=== PATIENT | female | born 1945 | race Caucasian/White ===

== ENCOUNTER 2023-05-23 13:55 | Observation (INO) | payer MEDICARE, OTHER, SELFPAY ==
[2023-05-23] VITALS (22 sets, daily range): BP systolic 113–203; BP diastolic 54–109; PULSE 70–102; RESP 16–20; TEMP 36.6–37.3; O2SAT 93–99; BMI 28.5
[2023-05-23] MEDS: LABETALOL 20MG/4ML SYRINGE 20 MG IV ×2 (11:27→11:42)
[2023-05-23 11:28] LABS: Basophils # 0.1 K/mm3 (0-0.2); Basophils % 0.9 % (0.1-2.0); Eosinophils # 0.2 K/mm3 (0.0-0.4); Eosinophils % 2.4 % (0.1-12.0); Hematocrit 44.8 % (37.0-47.0); Lymphocytes # 1.8 K/mm3 (0.7-4.5); Mean Corpuscular HGB Conc 33.5 g/dL (31.8-35.4); Mean Corpuscular Hemoglobin 32.2 pg (27.0-31.2); Mean Corpuscular Volume 95.9 fl (81-99); Mean Platelet Volume 8.7 fl (7.4-10.4); Monocytes # 0.2 K/mm3 (0.1-1.0); Monocytes % 3.6 % (1.7-9.3); Neutrophils # 4.5 K/mm3 (1.8-7.8); Neutrophils % 67.1 % (37.0-80.0); Platelet Count 255 K/mm3 (142-424); Red Blood Count 4.68 M/mm3 (4.20-5.40); Red Cell Distribution Width 13.4 % (11.5-17.5); White Blood Count 6.7 K/mm3 (4.8-10.8)
[2023-05-23] MEDS: LORazepam 2MG/ML VIAL 1 MG IV ×2 (12:04→16:26)
--- NOTE | 2023-05-23 12:19 | IR_ITS ---
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 COMPLICATIONS None Estimated Blood Loss: Less than 10 mls TECHNIQUE One percent lidocaine was used to anesthetize the right groin. The right femoral artery was accessed via the Seldinger technique. A 5-Niuean sheath was placed in the right femoral artery. The JL-4 and JR-4 catheter was also used to perform left heart catheterization left ventriculogram and selective coronary angiogram. The JR4 catheter was used to cannulate the left subclavian artery and perform diagnostic angiography as well as perform bilateral selective renal angiography. At the end of the diagnostic angiogram therapeutic heparin was administered giving a therapeutic ACT and the 5 [place] sheath was exchanged for a long 7 [place] Terumo sheath. The Terumo sheath was used to cannulate the left subclavian artery. An advantage wire was used to push through the occlusion and placed into the left axillary artery. Following this a 7 mm x 20 mm balloon was used to predilate the stenosis in the left subclavian artery. A 7 mm x 17 mm EV 3 balloon mounted stent was deployed at 12 boo reducing the 100% occlusion. There was an ostial stenosis in the left subclavian artery therefore an additional 7 mm x 15 mm Herculink stent was deployed in the ostium and proximal portion which overlapped a 17 mm stent and then deployed at 14 boo. Excellent angiographic results were obtained. At the end of the procedure the apparatus was removed retrograde angiography demonstrated a arthur-sheath bleeding/hematoma. There was an attempt at Perclose device however the the device was never deployed and instead Angio-Seal device was attempted to achieve hemostasis. The footplate in the device did not deploy therefore the apparatus was removed and manual pressure was used to achieve hemostasis. There was a small hematoma present on the right groin however hemostasis was easily obtained. Patient was transferred to the postop holding in stable condition ANGIOGRAPHIC RESULTS The left main artery Normal The left anterior descending artery Normal The circumflex artery Nondominant gives rise to a ramus intermedius which is normal as well as the circumflex artery. The right coronary artery Is dominant has an ostial 40 to 50% stenosis with remaining vessel normal The MICHAELS ventriculogram reveals Normal 65% The left ventricular end-diastolic pressure 10 mmHg Left subclavian artery was initially bluntly occluded. Following revascularization there is antegrade flow through the left subclavian artery and into the left vertebral artery as well as a left axillary artery Right renal artery is singular and has proximal to mid vessel 20% stenosis Left renal artery singular normal IMPRESSION Moderate ostial dominant right coronary disease as described above Normal ejection fraction Normal left ventricular end-diastolic pressure Occluded left subclavian artery with patient experiencing subclavian steal Successful bare-metal stent deployment to the left subclavian artery reducing the 100% occlusion to 0% with 2 overlapping bare-metal stents as described above Mild nonflow limiting right renal artery stenosis Normal left renal artery PLAN 1. Plavix 75 mg daily plus aspirin 81 mg daily 2. Low-dose beta-linda. Will start bisoprolol 5 mg daily 3. Start patient on ODALYS inhibitor 4. Admission overnight for monitoring of the right groin and management of blood pressure. Patient had blood pressure of over 200 mmHg at the beginning of the case and during the case. 5. LDL less than 55 to be achieved with current simvastatin/Zetia. Patient previously had myalgias with high intensity statin 6. Chemistry panel CBC in the morning Electronically signed by : Luca Yao MD 05/23/2023 14:21:06
[2023-05-23] MEDS: LIDOCAINE 1% 10ML MDV 20 ML IJ (12:23)
[2023-05-23] MEDS: diphenhydrAMINE 50MG/ML VIAL 50 MG IV (12:23)
[2023-05-23] MEDS: MIDAZOLAM HCL 1MG/1ML 5ML VIAL 1 MG IV ×2 (12:23→13:00)
[2023-05-23] MEDS: FENTANYL 100MCG/2ML VIAL 50 MCG IV ×2 (12:24→13:00)
[2023-05-23] MEDS: PROTAMINE SULFATE 50MG/5ML VIAL (CATH LAB) 50 MG IV (13:10)
[2023-05-23] MEDS: CLOPIDOGREL 300MG TABLET 300 MG PO (13:12)
--- NOTE | 2023-05-23 14:02 | HMH.PHAINT1 ---
Pharmacy Intervention Comments: HOME MEDICATION LIST VERIFIED USING LIST FROM OUTPATIENT PHARMACY
--- NOTE | 2023-05-23 15:00 | CA_ITS ---
FINAL REPORT TECHNIQUE: Ultrasound imaging of right inguinal region CLINICAL HISTORY: SWELLING RIGHT GROIN POST CATH COMPARISON: None FINDINGS: ULTRASOUND RIGHT INGUINAL REGION: Ultrasound examination was performed to evaluate soft tissue swelling in the region postcardiac catheterization. The common femoral vein reveals normal flow. No extravasation is seen on this examination. No pseudoaneurysm or AV fistula is present. IMPRESSION: No evidence of extravasation, pseudoaneurysm, or AV fistula is seen. Reviewed, Interpreted and Dictated by Monroe Daniels III, MD Transcribed by Selina Draper Authenticated and [facility]
--- NOTE | 2023-05-23 15:06 | P.CONCA_ITS ---
History of Present Illness History of Present Illness Consult date: 05/23/23 Requesting physician: Timbo Hardin Consult reason: post-op evaluation Chief complaint: Observation post procedure History of present illness: This is a 78-year-old white female who underwent left heart catheterization, left subclavian angiogram and bilateral renal angiogram today for further evaluation of polyvascular disease. Patient received 2 overlapping bare-metal stents to the left subclavian and is being admitted for observation and blood pressure management. See cath report below: IMPRESSION Moderate ostial dominant right coronary disease as described above Normal ejection fraction Normal left ventricular end-diastolic pressure Occluded left subclavian artery with patient experiencing subclavian steal Successful bare-metal stent deployment to the left subclavian artery reducing the 100% occlusion to 0% with 2 overlapping bare-metal stents as described above Mild nonflow limiting right renal artery stenosis Normal left renal artery PLAN 1. Plavix 75 mg daily plus aspirin 81 mg daily 2. Low-dose beta-linda. Will start bisoprolol 5 mg daily 3. Start patient on ODALYS inhibitor 4. Admission overnight for monitoring of the right groin and management of blood pressure. Patient had blood pressure of over 200 mmHg at the beginning of the case and during the case. 5. LDL less than 55 to be achieved with current simvastatin/Zetia. Patient previously had myalgias with high intensity statin 6. Chemistry panel CBC in the morning [facility] Disclaimer: The information contained in this section may have been updated after the patient was seen, as this information can be updated by other users. Medical History Claudication of left upper extremity due to atherosclerosis High cholesterol Hyperlipidemia Malignant essential hypertension Osteoporosis Subclavian artery stenosis, left Family History No significant family history Social History Smoking Status: Never smoker alcohol intake: never substance use type: denies use current occupational status: retired Travel in the last 8 weeks: Inside the [place] Review of Systems Review of Systems Review of systems:: pertinent systems reviewed and negative unless documented below ENT Ears, Nose, Mouth, and Throat: Reports vertigo *Neurologic Neurologic: Reports vertigo Exam Data for Last 24 hours Vital signs and Labs for Last 24 Hours: Temp Pulse Resp BP Pulse Ox O2 Del Method 98 F 72 17 114/69 95 Room Air 05/23/23 13:30 05/23/23 14:00 05/23/23 14:00 05/23/23 14:00 05/23/23 14:00 05/23/23 13:30 Laboratory Results - last 24 hr 05/23/23 11:15: WBC 6.7, RBC 4.68, Hgb 15.0, Hct 44.8, MCV 95.9, MCH 32.2 H, MCHC 33.5, RDW 13.4, Plt Count 255, MPV 8.7, Neut % (Auto) 67.1, Lymph % (Auto) 26.0, [place] % (Auto) 3.6, Eos % (Auto) 2.4, Baso % (Auto) 0.9, Neut # (Auto) 4.5, Lymph # (Auto) 1.8, [place] # (Auto) 0.2, Eos # (Auto) 0.2, Baso # (Auto) 0.1 I & O for Last 24 hours: Intake & Output 05/20/23 05/21/23 05/22/23 05/23/23 23:59 23:59 23:59 23:59 Weight 160 lb 14.999 oz Meds Home Medications and Allergies Home Medications Medication Instructions Recorded Confirmed Type calcium phosphate,dibasic 77 2 tab PO DAILY 05/23/23 05/23/23 History mg-vitamin D3 400 unit tablet clopidogrel 75 mg tablet (Plavix) 75 mg PO DAILY #30 tabs 05/23/23 Rx ezetimibe 10 mg-simvastatin 10 mg 1 tab PO DAILY 05/23/23 05/23/23 History tablet aspirin 81 mg tablet,delayed 81 mg PO DAILY 30 days #30 tabs 05/24/23 Rx release bisoprolol fumarate 5 mg tablet 5 mg PO DAILY 30 days #30 tabs 05/24/23 Rx clopidogrel 75 mg tablet 75 mg PO DAILY 30 days #30 tabs 05/24/23 Rx lisinopril 10 mg tablet 10 mg PO DAILY 30 days #30 tabs 05/24/23 Rx pravastatin 40 mg tablet 40 mg PO HS 30 days #30 tabs 05/24/23 Rx New Prescriptions to Start Prescriptions: aspirin Eric Rendon bisoprolol fumarate Eric Rendon clopidogrel [Plavix] Luca Yao clopidogrel Justice,Irfan lisinopril Justice,Irfan pravastatin Justice,Irfan Allergies Allergy/AdvReac Type Severity Reaction Status Date / Time No Known Allergies Allergy Verified 05/23/23 10:14 Assessment and Plan *Assessment and plan (1) PAD (peripheral artery disease): Status: Acute Category: Medical Code(s): I73.9 - Peripheral vascular disease, unspecified (2) Carotid artery disease: Status: Acute Qualifiers: Carotid artery disease type: stenosis Laterality: bilateral Qualified Code(s): I65.23 - Occlusion and stenosis of bilateral carotid arteries Category: Medical Code(s): I77.9 - Disorder of arteries and arterioles, unspecified (3) Malignant essential hypertension: Status: Acute Category: Medical Code(s): I10 - Essential (primary) hypertension (4) Subclavian artery stenosis, left: Status: Acute Category: Medical Code(s): I77.1 - Stricture of artery (5) Hyperlipidemia: Status: Acute Qualifiers: Hyperlipidemia type: mixed hyperlipidemia Qualified Code(s): E78.2 - Mixed hyperlipidemia Category: Medical Code(s): E78.5 - Hyperlipidemia, unspecified (6) Coronary artery disease: Status: Acute Category: Medical Code(s): I25.10 - Atherosclerotic heart disease of [place] coronary artery without angina pectoris Plan History of polyvascular disease Peripheral artery disease Carotid artery disease Subclavian stenosis -Left heart cath 05/23/2023: Right coronary artery is dominant and has an ostial 40 to 50% stenosis with remaining vessel normal. Patient received 2 overlapping bare-metal stents to the left subclavian artery. Mild nonflow limiting right renal artery stenosis was noted with a normal left renal artery. -Start Plavix 75 mg daily and aspirin 81 mg daily -Start bisoprolol 5 mg p.o. daily -Start lisinopril 10 mg p.o. daily -LDL goal less than 55. Patient has had myalgia in the past with high intensity statins recommend simvastatin and Zetia -A.m. labs CV summary 05/23/2023: Status post procedures see above note. Continue to monitor groin site and blood pressure throughout the evening. A.m. labs.
--- NOTE | 2023-05-23 15:14 | PC.NURSE ---
REPORT RECEIVED FROM JAYDEN GARCIA
[2023-05-23 15:42] LABS: CATHL Activated Clotting Time 352 SEC (74-125)
[2023-05-23] MEDS: IOPAMIDOL-370 (76%);100ML BOTTLE 180 ML IV (15:43)
--- NOTE | 2023-05-23 16:31 | PC.NURSE ---
arrived by ravener from [facility]
--- NOTE | 2023-05-23 18:11 | P.HP_ITS ---
History of Present Illness *Admission Date: 05/23/23 *Reason for visit:: Subclavian stenosis *History of present illness: Curtis is a 78-year-old female with left subclavian stenosis. Was brought in electively for stenting of stenosis with cardiology. History of claudication of left upper extremity. Concern for hypertension secondary to compensatory response to the stenosis. Also has a history of hyperlipidemia. Taken to the Blood Bank Laboratory Technologist with successful stenting and opening of subclavian. After procedure, had some difficulty closing right femoral artery insertion site. Pressure held with hemostasis achieved. Cardiology requested admission overnight for observation. Medicine agreed to admit. Patient stable on room air. Discussed case with cardiology, will monitor overnight, needs to lay flat till 9 PM. Blood pressure normal at this time. [facility] Disclaimer: The information contained in this section may have been updated after the patient was seen, as this information can be updated by other users. Medical History Claudication of left upper extremity due to atherosclerosis High cholesterol Hyperlipidemia Malignant essential hypertension Osteoporosis Subclavian artery stenosis, left Family History No significant family history Social History Smoking Status: Never smoker alcohol intake: never substance use type: denies use current occupational status: retired Travel in the last 8 weeks: Inside the [place] Review of Systems Review of Systems Review of systems (narrative): 14 point review of systems performed, pertinent positives and negatives as per HPI ENT Ears, Nose, Mouth, and Throat: Reports vertigo *Neurologic Neurologic: Reports vertigo Meds Home Medications and Allergies Home Medications Medication Instructions Recorded Confirmed Type aspirin 81 mg tablet 81 mg PO DAILY 05/23/23 05/23/23 History calcium phosphate,dibasic 77 2 tab PO DAILY 05/23/23 05/23/23 History mg-vitamin D3 400 unit tablet clopidogrel 75 mg tablet (Plavix) 75 mg PO DAILY #30 tabs 05/23/23 Rx ezetimibe 10 mg-simvastatin 10 mg 1 tab PO DAILY 05/23/23 05/23/23 History tablet New Prescriptions to Start Prescriptions: clopidogrel [Plavix] Luca Yao Allergies Allergy/AdvReac Type Severity Reaction Status Date / Time No Known Allergies Allergy Verified 05/23/23 10:14 Exam Data for Last 24 hours Vital signs and Labs for Last 24 Hours: Temp Pulse Resp BP Pulse Ox O2 Del Method 97.9 F 81 16 119/63 93 L Room Air 05/23/23 16:45 05/23/23 17:45 05/23/23 17:45 05/23/23 17:45 05/23/23 17:45 05/23/23 17:45 Laboratory Results - last 24 hr 05/23/23 11:15: WBC 6.7, RBC 4.68, Hgb 15.0, Hct 44.8, MCV 95.9, MCH 32.2 H, MCHC 33.5, RDW 13.4, Plt Count 255, MPV 8.7, Neut % (Auto) 67.1, Lymph % (Auto) 26.0, Lane % (Auto) 3.6, Eos % (Auto) 2.4, Baso % (Auto) 0.9, Neut # (Auto) 4.5, Lymph # (Auto) 1.8, Lane # (Auto) 0.2, Eos # (Auto) 0.2, Baso # (Auto) 0.1 05/23/23 13:33: Activated Clotting Time 352 H* I & O for Last 24 hours: Intake & Output 05/20/23 05/21/23 05/22/23 05/23/23 23:59 23:59 23:59 23:59 Weight 73 kg Constitutional Constitutional: no acute distress and average body habitus *Routine HEENT Exam Head: Present normocephalic Eye: Present EOMI and PERRL ENT: Present mucous membranes moist *Routine Neck Exam Neck: Present supple; Absent lymphadenopathy *Routine Respiratory Exam Respiratory: Present CTA bilaterally *Routine Cardiovascular Exam Cardiovascular: Present RRR *Routine Abdominal Exam Abdominal: Present soft and normoactive bowel sounds; Absent tenderness *Routine Rectal Exam Rectal:: deferred *Routine Genitalia Exam Genitalia:: normal female Comment:: Bruising in right groin at insertion site, no significant palpable hematoma. Tender to palpation *Routine Extremities Exam Extremities: Present pulses intact; Absent cyanosis, clubbing or edema *Routine Skin Exam Skin: Present warm; Absent rash *Routine Neurological Exam Neurological: Present alert, oriented X3 and moving all extremities; Absent altered mental status Assessment and Plan *Assessment and plan (1) Claudication of left upper extremity due to atherosclerosis: Status: Acute Category: Medical Code(s): I70.218 - Atherosclerosis of [place] arteries of extremities with intermittent claudication, other extremity (2) Subclavian artery stenosis, left: Status: Acute Category: Medical Code(s): I77.1 - Stricture of artery (3) Coronary artery disease: Status: Acute Category: Medical Code(s): I25.10 - Atherosclerotic heart disease of [place] coronary artery without angina pectoris (4) PAD (peripheral artery disease): Status: Acute Category: Medical Code(s): I73.9 - Peripheral vascular disease, unspecified (5) Hyperlipidemia: Status: Acute Qualifiers: Hyperlipidemia type: mixed hyperlipidemia Qualified Code(s): E78.2 - Mixed hyperlipidemia Category: Medical Code(s): E78.5 - Hyperlipidemia, unspecified Plan 78-year-old female with claudication of left upper extremity. Significant subclavian artery stenosis. Taken to Blood Bank Laboratory Technologist with successful stenting and reperfusion of subclavian artery. Discussed case with cardiology, request admission overnight for observation. Patient needs to lay flat till 9 AM. Blood pressure better controlled. Monitoring of hematoma in right groin. Problems addressed as follows: Left subclavian artery stenosis status post stenting Malignant hypertension Hyperlipidemia -Status post stenting. Monitoring overnight. Must lay flat till 9 PM at least. -Monitor for stroke symptoms, confusion, weakness, bleeding at insertion site and right groin - Continue bisoprolol 5 mg daily, Plavix 75 mg daily, aspirin 81 mg daily, lisinopril 10 mg daily, pravastatin 40 mg nightly. -Lipid panel ordered for the morning. CBC, CMP, magnesium ordered for the morning. -Cardiology consulted and assisting with care. Full code Regular diet Heparinized in the Blood Bank Laboratory Technologist
--- NOTE | 2023-05-23 18:33 | INFXCTL.NOTE ---
A&OX4. PT HAS TOLERATED RA WELL THROUGHOUT SHIFT. RESPIRATIONS REGULAR AND UNLABORED. LUNG SOUNDS CLEAR THROUGHOUT. NO COUGH NOTED. +1 PULSES NOTED THROUGHOUT. NO EDEMA NOTED. ACTIVE BOWEL SOUNDS HEARD IN ALL 4 QUADRANTS. SOFT AND NONTENDER. NO PAIN REPORTED THUS FAR. FAMILY HAS REMAINED AT BEDSIDE. HAND TRADE MARKER EQUAL. PT RECEIVED SUBCLAVIAN ANGIOGRAM THIS SHIFT WITH 1 STENT [address]ACED. R GROIN SITE NOTED. BRUISING NOTED. MONITORED CLOSELY AND UNCHANGED SINCE ARRIVAL TO FLOOR. BED IN LOWEST POSITION. PT HAS REMAINED IN SUPINE POSITION. CALL LIGHT WITHIN REACH. VSS.
[2023-05-23] MEDS: PRAVASTATIN 40MG TAB 40 MG PO (22:14)
[2023-05-24] VITALS: BP 112/64; PULSE 68; RESP 70; TEMP 36.6; O2SAT 94
[2023-05-24 04:00] VITALS: BP 119/60; PULSE 68; PULSE 71; RESP 18; TEMP 36.6; O2SAT 97; BMI 28.9
[2023-05-24 06:29] LABS: Eosinophils # 0.1 K/mm3 (0.0-0.4); Lymphocytes # 1.9 K/mm3 (0.7-4.5); Monocytes # 0.4 K/mm3 (0.1-1.0); Neutrophils # 4.2 K/mm3 (1.8-7.8); White Blood Count 6.6 K/mm3 (4.8-10.8)
[2023-05-24 06:44] LABS: Alanine Aminotransferase 25 U/L (12-78); Albumin Level 3.6 g/dl (3.5-5.0); Albumin/Globulin Ratio 1.3 (1.1-1.8); Alkaline Phosphatase 99 U/L (38-126); Anion Gap 12.8 mEq/L (5-15); Aspartate Amino Transferase 29 U/L (14-36); Bilirubin,Total 0.4 mg/dl (0.2-1.3); Blood Urea Nitrogen 20 mg/dl (7-17); Calcium 8.2 mg/dl (8.4-10.2); Carbon Dioxide 24 mmol/L (22.0-30.0); Chloride 109 mmol/L (98-107); Chol/HDL Ratio 5.9 (1-3.5); Cholesterol 176 mg/dl (140-200); Creatinine Clearance Estimated 54 mL/min (50-200); Estimated Glomerular Filt Rate 54 ml/min (>60); GFR (African American) 65 ML/MIN (>60); Globulin 2.7 g/dL (1.3-3.2); Glucose 103 mg/dl (74-100); HDL Cholesterol 30 mg/dl (40-60); Magnesium 2.2 mg/dl (1.6-2.3); Potassium 3.8 mmoL/L (3.5-5.1); Sodium 142 mmol/L (136-145); Total Protein,Serum 6.3 g/dl (6.3-8.2); Triglycerides 152 mg/dl (30-150); VLDL Cholesterol 30 mg/dL (0-40)
[2023-05-24 06:50] LABS: Basophils % 0.6 % (0.1-2.0); Eosinophils % 1.8 % (0.1-12.0); Lymphocytes % 28.2 % (10-50); Mean Corpuscular HGB Conc 33.1 g/dL (31.8-35.4); Mean Corpuscular Hemoglobin 31.3 pg (27.0-31.2); Mean Corpuscular Volume 94.3 fl (81-99); Neutrophils % 63.4 % (37.0-80.0); Platelet Count 264 K/mm3 (142-424); Red Blood Count 3.82 M/mm3 (4.20-5.40); Red Cell Distribution Width 13.3 % (11.5-17.5)
[2023-05-24 06:54] LABS: Direct LDL Cholesterol 103.71 mg/dL (100-129)
--- NOTE | 2023-05-24 07:00 | US_ITS ---
FINAL REPORT TECHNIQUE: Ultrasound examination of right inguinal area CLINICAL HISTORY: blood loss COMPARISON: Duplex scan right inguinal area 05/23/2023 FINDINGS: ULTRASOUND SOFT TISSUES RIGHT INGUINAL REGION: Ultrasound examination of the right inguinal region was performed. The patient has a history of a recent cardiac catheterization and continued bleeding from the catheterization site. No mass or fluid collection is identified in the right inguinal soft tissues. IMPRESSION: No mass or fluid collection identified in the right inguinal soft tissues at a cardiac catheterization site. Reviewed, Interpreted and Dictated by Monroe Daniels III, MD Transcribed by Selina Draper Authenticated and . [facility]
[2023-05-24 07:29] LABS: Hemoglobin 11.9 g/dL (12.2-16.2)
[2023-05-24 08:00] VITALS: BP 146/61; PULSE 78; PULSE 80; RESP 18; TEMP 36.8; O2SAT 96
[2023-05-24] MEDS: BISOPROLOL 5MG TABLET 5 MG PO (08:27)
[2023-05-24] MEDS: ASPIRIN EC 81MG TABLET 81 MG PO (08:27)
[2023-05-24] MEDS: LISINOPRIL 10MG TABLET 10 MG PO (08:27)
[2023-05-24] MEDS: CLOPIDOGREL 75MG TAB 75 MG PO (08:27)
[2023-05-24] MEDS: EZETIMIBE 10MG TABLET 10 MG PO (08:28)
--- NOTE | 2023-05-24 09:35 | P.PN_ITS ---
Subjective Subjective Date: 05/24/23 Time: 08:00 Principal diagnosis: Status post procedure Interval history: Patient doing well this morning. Systolic blood pressure has remained less than 130. Morning labs reviewed and stable. Right groin site-dressing dry and intact. Bruising noted, no swelling present. Right leg is pink and warm with strong DP and PT pulses present. Exam Data for Last 24 hours Vital signs and Labs for Last 24 Hours: Temp Pulse Resp BP Pulse Ox O2 Del Method 98.3 F 78 18 146/61 H 96 Room Air 05/24/23 08:00 05/24/23 08:00 05/24/23 08:00 05/24/23 08:00 05/24/23 08:00 05/24/23 08:00 Laboratory Results - last 24 hr 05/23/23 11:15: WBC 6.7, RBC 4.68, Hgb 15.0, Hct 44.8, MCV 95.9, MCH 32.2 H, MCHC 33.5, RDW 13.4, Plt Count 255, MPV 8.7, Neut % (Auto) 67.1, Lymph % (Auto) 26.0, [place] % (Auto) 3.6, Eos % (Auto) 2.4, Baso % (Auto) 0.9, Neut # (Auto) 4.5, Lymph # (Auto) 1.8, [place] # (Auto) 0.2, Eos # (Auto) 0.2, Baso # (Auto) 0.1 05/23/23 13:33: Activated Clotting Time 352 H* 05/24/23 05:48: WBC 6.6, RBC 3.82 L, Hgb 11.9 L D, Hct 36.0 L, MCV 94.3, MCH 31.3 H, MCHC 33.1, RDW 13.3, Plt Count 264, MPV 8.0, Neut % (Auto) 63.4, Lymph % (Auto) 28.2, [place] % (Auto) 6.0, Eos % (Auto) 1.8, Baso % (Auto) 0.6, Neut # (Auto) 4.2, Lymph # (Auto) 1.9, [place] # (Auto) 0.4, Eos # (Auto) 0.1, Baso # (Auto) 0.0, Sodium 142, Potassium 3.8, Chloride 109 H, Carbon Dioxide 24, Anion Gap 12.8, BUN 20 H, Creatinine 1.00, Estimated Creat Clear 54, Estimated GFR 54 L, Est GFR ( Amer) 65, Glucose 103 H, Calcium 8.2 L, Magnesium 2.2, Total Bilirubin 0.4, AST 29, ALT 25, Alkaline Phosphatase 99, Total Protein 6.3, Albumin 3.6, Globulin 2.7, Albumin/Globulin Ratio 1.3, Triglycerides 152 H, Cholesterol 176, LDL Cholesterol Direct 103.71, VLDL Cholesterol 30, HDL Cholesterol 30 L, Cholesterol/HDL Ratio 5.9 H I & O for Last 24 hours: Intake & Output 05/21/23 05/22/23 05/23/23 05/24/23 23:59 23:59 23:59 23:59 Intake Total 260 / 260 Output Total 0 / 0 0 / 0 Balance 0 / 0 260 / 260 Weight 160 lb 14.999 oz 163 lb 4.8 oz Constitutional Constitutional: no acute distress *Routine Respiratory Exam Respiratory: Present CTA bilaterally and symmetric chest movement *Routine Cardiovascular Exam Cardiovascular: Present RRR, Normal S1 and Normal S2 *Routine Abdominal Exam Abdominal: Present soft and normoactive bowel sounds; Absent tenderness *Routine Extremities Exam Extremities: Present full ROM, pulses intact and normal capillary refill; Absent edema Comments: Right groin site-dressing dry and intact. Bruising present with no swelling noted. Right leg is pink and warm with strong DP and PT pulses present. *Routine Skin Exam Skin: Present intact, dry and warm Detailed Neck Exam: Thyroids Thyroid: Absent bruit Progress Note: A&P Assessment and plan (1) Claudication of left upper extremity due to atherosclerosis: Status: Acute (2) Subclavian artery stenosis, left: Status: Acute (3) Coronary artery disease: Status: Acute (4) PAD (peripheral artery disease): Status: Acute (5) Hyperlipidemia: Status: Acute Assessment and Plan Assessment and Plan for All Diagnoses:: History of polyvascular disease Peripheral artery disease Carotid artery disease Subclavian stenosis -Left heart cath 05/23/2023: Right coronary artery is dominant and has an ostial 40 to 50% stenosis with remaining vessel normal. Patient received 2 overlapping bare-metal stents to the left subclavian artery. Mild nonflow limiting right renal artery stenosis was noted with a normal left renal artery. -Continue Plavix 75 mg daily and aspirin 81 mg daily -Stop bisoprolol and Lisinopril per Dr. choe. -Patient advised to monitor blood pressure at home and keep a twice daily blood pressure log and bring with her to office follow-up -LDL goal less than 55. Patient has had myalgia in the past with high intensity statins recommend simvastatin and Zetia -A.m. labs reviewed and stable. -Right lower extremity ultrasound 05/24/2023: No mass or fluid collection identified in the right inguinal soft tissue in the cardiac catheterization site. CV summary 05/24/2023: Patient is CV stable for discharge home after Dr. Choe sees her this afternoon. Patient needs to follow-up in cardiology clinic in 1 week for reevaluation. Please continue Plavix 75 mg p.o. daily, aspirin 81 mg p.o. daily, Zetia 10 mg p.o. daily and simvastatin 40 mg p.o. daily. Please advise patient to keep a twice daily blood pressure log and bring it with her to office follow-up.
--- NOTE | 2023-05-24 09:44 | P.DS_ITS ---
General Admission date:: 05/23/23 Discharge date: 05/26/23 HPI HPI HPI: Curtis is a 78-year-old female with left subclavian stenosis. Was brought in electively for stenting of stenosis with cardiology. History of claudication of left upper extremity. Concern for hypertension secondary to compensatory response to the stenosis. Also has a history of hyperlipidemia. Taken to the Student Driving Instructor with successful stenting and opening of subclavian. After procedure, had some difficulty closing right femoral artery insertion site. Pressure held with hemostasis achieved. Cardiology requested admission overnight for observation. Medicine agreed to admit. Patient stable on room air. Discussed case with cardiology, will monitor overnight, needs to lay flat till 9 PM. Blood pressure normal at this time. Hospital Course Hospital Course Hospital Course: Patient was seen and evaluated at the bedside on the day of discharge. Patient is stable for discharge. Patient wishes to be discharged. All patient questions were answered and patient was given time to ask questions. Patient was discharged in stable condition. Patient understands that she can return to ER in case of any sudden changes in health. Total time spent on DC - 38 mins Patient to follow up with cardiology as OP, see Cardiology progress note. Patient is CV stable for discharge home per cardiology. Patient needs to follow- up in cardiology clinic in 1 week for reevaluation. Please continue Plavix 75 mg p.o. daily, aspirin 81 mg p.o. daily, Zetia 10 mg p.o. daily and simvastatin 40 mg p.o. daily. Please advise patient to keep a twice daily blood pressure log and bring it with her to office follow-up. Exam Data for Last 24 hours Vital signs and Labs for Last 24 Hours: Temp Pulse Resp BP Pulse Ox O2 Del Method 98.3 F 78 18 146/61 H 96 Room Air 05/24/23 08:00 05/24/23 08:00 05/24/23 08:00 05/24/23 08:00 05/24/23 08:00 05/24/23 08:00 Laboratory Results - last 24 hr 05/23/23 11:15: WBC 6.7, RBC 4.68, Hgb 15.0, Hct 44.8, MCV 95.9, MCH 32.2 H, MCHC 33.5, RDW 13.4, Plt Count 255, MPV 8.7, Neut % (Auto) 67.1, Lymph % (Auto) 26.0, [place] % (Auto) 3.6, Eos % (Auto) 2.4, Baso % (Auto) 0.9, Neut # (Auto) 4.5, Lymph # (Auto) 1.8, [place] # (Auto) 0.2, Eos # (Auto) 0.2, Baso # (Auto) 0.1 05/23/23 13:33: Activated Clotting Time 352 H* 05/24/23 05:48: WBC 6.6, RBC 3.82 L, Hgb 11.9 L D, Hct 36.0 L, MCV 94.3, MCH 31.3 H, MCHC 33.1, RDW 13.3, Plt Count 264, MPV 8.0, Neut % (Auto) 63.4, Lymph % (Auto) 28.2, [place] % (Auto) 6.0, Eos % (Auto) 1.8, Baso % (Auto) 0.6, Neut # (Au to) 4.2, Lymph # (Auto) 1.9, [place] # (Auto) 0.4, Eos # (Auto) 0.1, Baso # (Auto) 0.0, Sodium 142, Potassium 3.8, Chloride 109 H, Carbon Dioxide 24, Anion Gap 12.8, BUN 20 H, Creatinine 1.00, Estimated Creat Clear 54, Estimated GFR 54 L, Est GFR ( Amer) 65, Glucose 103 H, Calcium 8.2 L, Magnesium 2.2, Total Bilirubin 0.4, AST 29, ALT 25, Alkaline Phosphatase 99, Total Protein 6.3, Albumin 3.6, Globulin 2.7, Albumin/Globulin Ratio 1.3, Triglycerides 152 H, Cholesterol 176, LDL Cholesterol Direct 103.71, VLDL Cholesterol 30, HDL Cholesterol 30 L, Cholesterol/HDL Ratio 5.9 H I & O for Last 24 hours: Intake & Output 05/21/23 05/22/23 05/23/23 05/24/23 23:59 23:59 23:59 23:59 Intake Total 260 / 260 Output Total 0 / 0 0 / 0 Balance 0 / 0 260 / 260 Weight 73 kg 74.072 kg Constitutional Constitutional: no acute distress *Routine HEENT Exam Head: Present normocephalic Eye: Present EOMI and PERRL ENT: Present mucous membranes moist *Routine Neck Exam Neck: Present supple; Absent lymphadenopathy *Routine Respiratory Exam Respiratory: Present CTA bilaterally and symmetric chest movement *Routine Cardiovascular Exam Cardiovascular: Present RRR, Normal S1 and Normal S2 *Routine Abdominal Exam Abdominal: Present soft and normoactive bowel sounds; Absent tenderness *Routine Extremities Exam Extremities: Present full ROM, pulses intact and normal capillary refill; Absent edema Comments: Right groin site-dressing dry and intact. Bruising present with no swelling noted. Right leg is pink and warm with strong DP and PT pulses present. *Routine Skin Exam Skin: Present intact, dry and warm *Routine Neurological Exam Neurological: Present alert and oriented X3 Detailed Neck Exam: Thyroids Thyroid: Absent bruit Results Data Completed and Pending Labs on day of discharge: Labs from last 24 hours 05/24/23 05/23/23 05/23/23 05:48 13:33 11:15 WBC 6.6 6.7 RBC 3.82 L 4.68 Hgb 11.9 L D 15.0 Hct 36.0 L 44.8 MCV 94.3 95.9 MCH 31.3 H 32.2 H MCHC 33.1 33.5 RDW 13.3 13.4 Plt Count 264 255 MPV 8.0 8.7 Neut % (Auto) 63.4 67.1 Lymph % (Auto) 28.2 26.0 Charlotte % (Auto) 6.0 3.6 Eos % (Auto) 1.8 2.4 Baso % (Auto) 0.6 0.9 Neut # (Auto) 4.2 4.5 Lymph # (Auto) 1.9 1.8 Charlotte # (Auto) 0.4 0.2 Eos # (Auto) 0.1 0.2 Baso # (Auto) 0.0 0.1 Activated Clotting Time 352 H* Sodium 142 Potassium 3.8 Chloride 109 H Carbon Dioxide 24 Anion Gap 12.8 BUN 20 H Creatinine 1.00 Estimated Creat Clear 54 Estimated GFR 54 L Est GFR ( Amer) 65 Glucose 103 H Calcium 8.2 L Magnesium 2.2 Total Bilirubin 0.4 AST 29 ALT 25 Alkaline Phosphatase 99 Total Protein 6.3 Albumin 3.6 Globulin 2.7 Albumin/Globulin Ratio 1.3 Triglycerides 152 H Cholesterol 176 LDL Cholesterol Direct 103.71 VLDL Cholesterol 30 HDL Cholesterol 30 L Cholesterol/HDL Ratio 5.9 H DS: Diagnosis Discharge Diagnosis (1) PAD (peripheral artery disease): Status: Acute Code(s): I73.9 - Peripheral vascular disease, unspecified (2) Carotid artery disease: Status: Acute Code(s): I77.9 - Disorder of arteries and arterioles, unspecified Qualifiers: Carotid artery disease type: stenosis Laterality: bilateral Qualified Code(s): I65.23 - Occlusion and stenosis of bilateral carotid arteries (3) Malignant essential hypertension: Status: Acute Code(s): I10 - Essential (primary) hypertension (4) Subclavian artery stenosis, left: Status: Acute Code(s): I77.1 - Stricture of artery (5) Hyperlipidemia: Status: Acute Code(s): E78.5 - Hyperlipidemia, unspecified Qualifiers: Hyperlipidemia type: mixed hyperlipidemia Qualified Code(s): E78.2 - Mixed hyperlipidemia (6) Coronary artery disease: Status: Acute Code(s): I25.10 - Atherosclerotic heart disease of [place] coronary artery without angina pectoris Meds Home Medications and Allergies Home Medications Medication Instructions Recorded Confirmed Type calcium phosphate,dibasic 77 2 tab PO DAILY 05/23/23 05/23/23 History mg-vitamin D3 400 unit tablet clopidogrel 75 mg tablet (Plavix) 75 mg PO DAILY #30 tabs 05/23/23 Rx ezetimibe 10 mg-simvastatin 10 mg 1 tab PO DAILY 05/23/23 05/23/23 History tablet aspirin 81 mg tablet,delayed 81 mg PO DAILY 30 days #30 tabs 05/24/23 Rx release clopidogrel 75 mg tablet 75 mg PO DAILY 30 days #30 tabs 05/24/23 Rx New Prescriptions to Start Prescriptions: aspirin Iván Rendonan clopidogrel [Plavix] Luca Yao clopidogrel Justice,Irfan Allergies Allergy/AdvReac Type Severity Reaction Status Date / Time No Known Allergies Allergy Verified 05/23/23 10:14 Discharge Plan Disposition Patient Disposition: Home, Self-Care Condition: Fair Follow up Plan Follow up with: Luca Yao MD [Staff Physician] - 05/31/23 11:00 am Prescriptions/Medication Reconciliation: New clopidogrel [Plavix] 75 mg Tablet 75 mg PO DAILY Qty: 30 6RF aspirin 81 mg Tablet,Delayed Release (Dr/Ec) 81 mg PO DAILY 30 Days Qty: 30 0RF clopidogrel 75 mg Tablet 75 mg PO DAILY 30 Days Qty: 30 0RF Continued ezetimibe-simvastatin 10-10 mg tablet 1 tab PO DAILY calcium phos,dibas-vitamin D3 77-400 mg-unit Tablet 2 tab PO DAILY Discontinued aspirin 81 mg tablet 81 mg PO DAILY Problem Reconciliation Problems Reviewed?: Yes Patient Discharge Instructions ACTIVITY: Ambulate as tolerated DIET: advance to your usual diet and low fat, low cholesterol Patient Instructions: Cardiac Catheterization, Malignant Hypertension, Surgical Site Infection Providers Primary Care Provider: Pastor Hensley Admit Provider: Timbo Hardin Attending Provider: Timbo Hardin
[2023-05-24 11:25] VITALS: BP 127/58; PULSE 68; RESP 18; TEMP 37.1; O2SAT 95
--- NOTE | 2023-05-25 12:36 | SW/DCPLANNER ---
Follow up phone call w/ this patient: patient stated that she is living w/ her daughter and doing well at home. Patient did not have any further needs/questions at this time.
== END 2023-05-24 13:29 | disposition home or self-care (01) ==
LOC: 2ND 13:56
PROVIDERS: Internal Medicine; Admitting Provider Internal Medicine Adolescent Medicine; PCP Internal Medicine; Visit Provider Internal Medicine Adolescent Medicine
DX: E78.5 Hyperlipidemia, unspecified (principal); I10 Essential (primary) hypertension; I77.1 Stricture of artery; I70.218 Atherosclerosis of native arteries of extremities with intermittent claudication, other extremity; I25.10 Atherosclerotic heart disease of native coronary artery without angina pectoris; E78.2 Mixed hyperlipidemia; I65.23 Occlusion and stenosis of bilateral carotid arteries
CPT/HCPCS: 36252; 36415; 37236; 76882; 80053; 80061; 83735; 85025; 85347; 93458; 93926; 99152; 99153; C1725; C1760; C1769; C1876; C1894; G0378; J2720; Q9967

== ENCOUNTER 2023-11-23 11:23 | Outpatient (CLI) | payer MEDICARE, OTHER, SELFPAY ==
[2023-11-23] MEDS: INCLISIRAN SODIUM 284 MG/1.5 ML SYRINGE SQ (11:38)
[2023-11-23 11:45] VITALS: BP 182/98; PULSE 76; RESP 18; O2SAT 99
== END 2023-11-23 11:45 | disposition home or self-care (01) ==
LOC: INF 11:25
PROVIDERS: Visit Provider Internal Medicine
DX: E78.5 Hyperlipidemia, unspecified (principal)
CPT/HCPCS: 96372; J1306

== ENCOUNTER 2024-02-06 10:14 | Outpatient (CLI) | payer MEDICARE, OTHER, SELFPAY ==
[2024-02-06 10:49] LABS: Albumin Level 4.7 g/dl (3.5-5.0)
[2024-02-06 10:52] LABS: Alanine Aminotransferase 48 U/L (12-78); Alkaline Phosphatase 115 U/L (38-126); Aspartate Amino Transferase 46 U/L (14-36); Bilirubin,Direct 0.2 mg/dl (0.0-0.4); Bilirubin,Indirect 0.4 mg/dL (0.0-0.9); Bilirubin,Total 0.6 mg/dl (0.2-1.3); Bilirubin,Unconjugated 0.4 mg/dL (0.0-1.1); Chol/HDL Ratio 3.4 (1-3.5); Cholesterol 171 mg/dl (140-200); HDL Cholesterol 51 mg/dl (40-60); Total Protein,Serum 7.5 g/dl (6.3-8.2); Triglycerides 199 mg/dl (30-150); VLDL Cholesterol 40 mg/dL (0-40)
[2024-02-06 11:03] LABS: Direct LDL Cholesterol 69.24 mg/dL (100-129)
== END 2024-02-06 23:59 | disposition home or self-care (01) ==
PROVIDERS: Visit Provider Internal Medicine
DX: I73.9 Peripheral vascular disease, unspecified (principal); E78.2 Mixed hyperlipidemia; I25.10 Atherosclerotic heart disease of native coronary artery without angina pectoris; I10 Essential (primary) hypertension; I70.1 Atherosclerosis of renal artery; I77.1 Stricture of artery; G45.9 Transient cerebral ischemic attack, unspecified
CPT/HCPCS: 36415; 80061; 80076

== ENCOUNTER 2024-02-22 11:17 | Outpatient (CLI) | payer MEDICARE, OTHER, SELFPAY ==
[2024-02-22] MEDS: INCLISIRAN SODIUM 284 MG/1.5 ML SYRINGE SQ (11:49)
[2024-02-22 11:54] VITALS: BP 165/75; PULSE 85; RESP 18; TEMP 37; O2SAT 100
== END 2024-02-22 11:54 | disposition home or self-care (01) ==
LOC: INF 11:19
PROVIDERS: PCP Internal Medicine; Visit Provider Internal Medicine
DX: I70.90 Unspecified atherosclerosis (principal)
CPT/HCPCS: 96372; J1306

== ENCOUNTER 2024-08-22 11:33 | Outpatient (CLI) | payer MEDICARE, OTHER, SELFPAY ==
[2024-08-22 11:48] VITALS: BP 185/84; PULSE 71; RESP 18; TEMP 36.6; O2SAT 100
[2024-08-22] MEDS: INCLISIRAN SODIUM 284 MG/1.5 ML SYRINGE SUBCUT (11:48)
== END 2024-08-22 12:04 | disposition home or self-care (01) ==
LOC: INF 11:35
PROVIDERS: PCP Internal Medicine; Visit Provider Internal Medicine
DX: E78.5 Hyperlipidemia, unspecified (principal)
CPT/HCPCS: 96372; J1306

== ENCOUNTER 2025-02-22 11:39 | Outpatient (CLI) | payer MEDICARE, OTHER, SELFPAY ==
--- OUTSIDE RECORDS SUMMARY | 2025-02-22 11:47 | XMS_ITS | Clinical Summary ---
Author Organization [facility] Address [address] [place] [address] Phone Care Team Providers Care Global Climate Change Researcher Name Role Phone Ravi Matthews MD Primary Care Physician [phone] [ ] Conditions or Problems No information available. Medications No information available. Medications Administered No information available. Allergies, Adverse Reactions, Alerts No information available. Results No information available. Plan of Care Type Date Detail Pending order COVID-19 Moderna Pending order IZ administratio n - COVID-19 - Moderna 2nd dose Pending order COVID-19 Moderna Pending order IZ administratio n - COVID-19 - Moderna 1st dose Procedures Code Procedure Name Date Entry Date CPT-24354 COVID-19 Moderna CPT-0012A IZ administration - COVID-19 - Moderna 2n d dose CPT-65187 COVID-19 Moderna CPT-0011A IZ administration - COVID-19 - Moderna 1s t dose Vital Signs No information available. Immunizations Vaccine Administration Date Standard Description CVX Co de Dose Moderna COVID-19 Vaccine Intramuscular Suspension 100 MCG/0.5ML Dose 1 Moderna COVID-19 Vaccine Intramuscular Suspension 100 MCG/0.5ML Dose 1 207 0.5 mL Moderna COVID-19 Vaccine Intramuscular Suspension 100 MCG/0.5ML Dose 2 Moderna COVID-19 Vaccine Intramuscular Suspension 100 MCG/0.5ML Dose 2 207 0.5 mL Advance Directives No information available.
--- OUTSIDE RECORDS SUMMARY | 2025-02-22 11:48 | XMS_ITS | Clinical Summary ---
Author Organization [facility] Address [address] [place] [address] [place]DMIL[place] Patel [address] Phone Care Team Providers Care Online Advertising Analyst Name Role Phone Pastor Hensley MD Primary Care Provider [phone] Allergies Active Allergy Reactions Criticality Noted Date Comments Codeine 11/15/2016 Medications aspirin 81 mg Oral Tablet, Delayed Release (E.C.) Take by mouth daily. Active losartan (COZAAR) 50 mg Oral Tablet Take 50 mg by mouth daily. Active inclisiran (LEQVIO) 284 mg/1.5 mL SubQ Syringe Subcutaneous (Inject under the skin) 284 mg Every 6 Months. Active Active Problems Problem Noted Date Diagnosed Date Primary hypertension 07/04/2024 Assessment & Plan (07/04/2024 10:33 AM EST): Orders: MYCHART BP FLOWSHEET MICROALBUMIN/CREATININE RATIO URINE; Future Hyperlipidemia with target LDL less than 100 06/2023 Assessment & Plan (07/04/2024 10:48 AM EST): On Leqvio since 2023 Check fasting lipids Orders: LIPID SCREEN; Future COMPREHENSIVE METABOLIC PANEL; Future Age-related osteoporosis wit hout current pathological fracture 11/15/2016 Assessment & Plan (07/04/2024 10:48 AM EST): History of Low Impact Fracture : No (minimal trauma involved, typically a fall from a standing height or less) Goal: - maintain or improve bone density to reduce fractures Treatment: - weight bearing exercise - vitamin D - calcium Compliance: - not on medication Referrals: - none Medication Management: - a reassessment of the patients current diagnoses, medications, labs, potential SE, appropriate dose and risks assessed and discussed today - Check DEXA - calcium [id number] OTC Orders: DX BONE DENSITY AXIAL SKELETON; Future Encounters Date Type Department Care Team Description 01/24/2025 Patient Outreach SEP [facility] [address] [place] [address] Pastor Hensley MD Central Order Completion Outreach (dexa/mammo) from Last 3 Months Immunizations Immunization Administration Dates Next Due Influenza Seasonal Injectable PF 07/04/2024 Influenza Vaccine Quadrivalent 04/13/2019 Influenza Vaccine Quadrivalent PF 05/10/2023 Influenza Virus Vaccine Quad rivalant, Flublok 03/10/2022 Moderna SARS-CoV-2 Vaccine 1 2+ Yrs (Light blue border) 03/16/2021,06/30/2020,06/02/2020 Pneumococcal Polysaccharide 23 Valent 09/09/2020 Tdap 11/15/2008 Surgical History Surgery Date Site/Laterality Comments WRIST GANGLION EXCISION 05/09/1984 - 05/08/1985 Bilatera l ANGIOPLASTY [id number] left subclavian artery Medical History Medical History Date Comments History of shingles 2014 abdomen Hyperlipidemia Subclavian artery stenosis, left 05/2023 s/p stent [facility] Hypertension CAD (coronary artery disease) Family History Medical History Relation Name Comments Other Daughter Molly MS Heart Disease Father Timbo Breast Cancer Mother Chery COPD Mother Chery smoker Dementia Mother Chery Heart Disease Mother Chery Copd Arthritis Sister 1 Zandra Elevated Lipids Sister 1 Zandra Hiatal hernia Sister 1 Zandra s/p surgery Other Sister 1 Zandra TIA Arrhythmia Sister 2 Erma has PPM Relation Name Status Comments Daughter Molly Alive Father Timbo Mother Chery (Age 89) Sister 1 Zandra Alive Sister 2 Erma Alive Social History Tobacco Use Types Packs/Day Years Used Date Smoking Tobacco: Never Smokeless Tobacco: Never Tobacco Cessation:Counseling Given: No Alcohol Use Standard Drinks/Week Comments Yes 0 (1 standard drink = 0.6 oz pur e alcohol) occ PHQ-2 Answer Date Recorded PHQ-2 Total Score 0 07/04/2024 [facility] of Occupat ional Health - Occupational Stress Questionnaire Answer Date Recorded Do you feel stress - tense, restless, nervous, or anxious, or unable to sleep at night because your mind is troubled all the time - these days? Rather much 09/10/2020 Exercise Vital Sign Answer Date Recorde d On average, how many days pe r week do you engage in moderate to strenuous exercise (like a brisk walk)? 7 days 09/10/2020 On average, how many minutes do you engage in exercise at this level? 30 min 09/10/2020 Sexually Active Control Partners Comments Not Currently Comments No Sex and Gender Information Value Date Recorded Sex Assigned at Not on file Legal Sex Female 1:36 PM EDT Gender Identity Not on file Sexual Orientation Not on file Last Filed Vital Signs Vital Sign Reading Time Taken Comments Blood Pressure 132/80 07/04/2024 10:12 AM EST Pulse 85 07/04/2024 10:01 AM EST Temperature 36.6 C (97.9 F) 07/04/2024 10:01 AM EST Respiratory Rate 16 07/04/2024 10:01 AM EST Oxygen Saturation 98% 07/04/2024 10:01 AM EST Inhaled Oxygen Concentration - - Weight 69.6 kg (153 lb 6.4 oz) 07/04/2024 10:01 AM EST Height 160 cm (5' 3 ) 07/04/2024 10:01 AM EST Body Mass Index 27.17 07/04/2024 10:01 AM EST Plan of Treatment Health Maintenance Due Date Last Done Comments Zoster (1 of 2) 1995 DTaP/TDaP/Td (2 - Td or Tdap) 11/15/2018 11/15/2008 RSV or 60+ (1 - 1-dose 75+ series) 01/03/2020 Pneumococcal Vaccine 50+ (2 of 2 - PCV) 09/09/2021 09/09/2020 COVID-19 Vaccine (4 - season) 2025 03/16/2021, 06/30/2020, 06/02/2020 Influenza Vaccine (#1) 2025 , 05/10/2023, 03/10/2022, Additional history exists Wellness Exam Medicare 07/05/2025 5, 05/10/2023, 09/09/2020 Hepatitis C Screening Completed 04/13/2019 Bone Density Screening Completed 10/07/2020, 2016 Hepatitis B Vaccine Aged Out No longe r eligible based on patient's age to complete this topic Meningococcal B Vaccine Aged Out No l onger eligible based on patient's age to complete this topic Goals Goal Patient Goal Type Associated Problems Recent Progress Patient-Stated? Author Blood Pressure < 140/90 Blood Pressure 132/80(2024 10:12 AM EST) No Pastor Hensley MD Maintain a healthy diet, exercise regularly and maintain an ideal body weight General No Diane Riojas RMA Procedures Procedure Name Priority Date/Time Associated Diagnosis Comments DX BONE DENSITY AXIAL SKELETON Routine 10/07/2020 8:54 AM EDT Age-related osteoporosis without current pathological fracture HCV ANTIBODY SCREEN W/ REFLEX Routine 04/13/2019 3:20 PM EST Need for hepatitis C screening test from Last 3 Months or Most Recently Relevant to Health Maintenance Results * DX BONE DENSITY AXIAL SKELETON (10/07/2020 8:54 AM EDT) Anatomical Region Laterality Modality Dexa Scan 10/07/2020 Narrative 10/07/2020 3:42 PM EDT Indication: The patient is a female age 65 or older who requires a bone density assessment. Study was performed on [place]. Bone Density: Region BMD T-score Z-score AP Spine (L3, L4) 0.906 -1.8 0.8 Femoral Neck (Left) 0.554 -2.7 -0.5 Total Hip (Left) 0.689 -2.1 -0.2 1/3 Radius (Left) 0.520 -2.9 -0.3 World Health Organization criteria for BMD interpretation classify patients as: Normal (T-score at or above -1.0), Low Bone Density (T-score between -1.0 and -2.5), or Osteoporotic (T-score at or below -2.5). T Scores are reported in Postmenopausal women and in men age 50 and older. Z-scores are reported in females prior to menopause and in males younger than age 50. 10-year Fracture Risk: FRAX not reported because: Some T-score for Spine Total or Hip Total or Femoral Neck at or below -2.5 Previous Exams: Region Date Age BMD T-score BMD Change AP Spine(L3, L4) 10/07/2020 75 0.906 -1.8 2.8% 12/24/2016 71 0.881 -2.0 Total Hip(Left) 10/07/2020 75 0.689 -2.1 2.5% 12/24/2016 71 0.673 -2.2 -5.9%* 05/04/2006 61 0.715 -1.9 -2.9% 03/11/1998 53 0.736 -1.7 *Denotes significance at 95% confidence level, LSC for AP Spine = 0.032g/cm2, LSC for Total Hip = 0.024 g/cm2, LSC for Distal 1/3 Radius = 0.026 g/cm2, site specific LSC for AP Spine = 0.032 g/cm2, site specific LSC for Total Hip = 0.022 g/cm2 BMD is shown in g/cm2 and BMD Change indicates change vs previous BMD Clinical Information Provided by Patient: Has had a low trauma fracture. Has used or is currently using the following medications: Calcium, Vitamin D Has had or currently has the following medical conditions: Vitamin D Insufficiency Patient maximum height was 63 Menopause Age: 43 Patient is POSTMENOPAUSAL Interpretation: Bone mineral density is in the osteoporotic range. Medical evaluation for secondary causes of low bone density may be appropriate. A minimum of two years may be required between bone density studies due to inherent testing precision limitations. Intervals between BMD testing should be determined according to each patient's clinical status: typically one year after initiation or change of therapy is appropriate, with longer intervals once therapeutic effect is established. The spine portion of the study is limited by visual hypertrophic change with associated vertebra deleted. The spine bone mineral density is not significantly changed since the last exam. The left hip bone mineral density is not significantly changed since last exam. Reported by: Symone Ty PA-C, MMS, CCD on 10/07/2020 11:04:00 AM. Pastor Hensley MD IMG DEXA ORDERABLES Final Result * HEPATITIS C ANTIBODY - SCREENING (04/13/2019 3:20 PM EST) Hep C Ab Non-Reactiv e Non-Reacti ve 04/13/2019 9:36 PM EST PREFERRED [employer] Blood Venipuncture / Unknown 04/13/2019 3:20 PM EST 04/13/2019 3:20 PM EST Pastor Hensley MD HEMATOLOGY ORDERABLES Final Resu lt [facility] [address] [facility] , [address] [place] [address] from Last 3 Months or Most Recently Relevant to Health Maintenance Insurance MEDICARE [place] PART [place] B [place]ICARE [place] A AND B [facility] MEDICARE SUPPLEMENT [id number] Care Teams Online Advertising Analyst Relationship Specialty Start Date End Date Pastor Hensley MD [address] [facility] [address] [place] [address] PCP - General Internal Medicine 11/04/20
--- OUTSIDE RECORDS SUMMARY | 2025-02-22 11:48 | XMS_ITS | Encounter Summary ---
Author Organization [place] [address] Care Team Providers Care Railroad Track Inspector Name Role Phone Pastor Hensley MD Primary Care Provider [phone] Reason for Visit * Reason Onset Date Comments Central Order Completion Outreach 01/24/2025 dexa/mammo Encounter Details Date Type Department Care Team (Late Contact Info) Description 01/24/2025 Patient Outreach SEP P [address] [place], [place] [id number] Pastor Hensley MD [address] [facility] [address] [place] [address] Central Order Completion Outreach (dexa/mammo) Social History Tobacco Use Types Packs/Day Years Used Date Smoking Tobacco: Never Smokeless Tobacco: Never Alcohol Use Standard Drinks/Week Comments Yes 0 (1 standard drink = 0.6 oz pur e alcohol) occ PHQ-2 Answer Date Recorded PHQ-2 Total Score 0 07/04/2024 [facility] Occupat ional [facility] [place] - Occupational Stress Questionnaire Answer Date Recorded [...] on file Sexual Orientation Not on file documented as of this encounter Functional Status * Is the person deaf or does he/she have serious difficulty hearing? Answer Date of Assessment Author No 05/10/2023 9:59 AM Leigh Ann Walsh MA * Is the person blind or does he/she have serious difficulty seeing even when wearing glasses? Answer Date of Assessment Author No 05/10/2023 9:59 AM Leigh Ann Walsh MA * Does this person have serious difficulty walking or climbing stairs? Answer Date of Assessment Author No 05/10/2023 9:59 AM Leigh Ann Walsh MA * Does this person have difficulty dressing or bathing? Answer Date of Assessment Author No 05/10/2023 9:59 AM Leigh Ann Walsh MA * Because of a physical, mental or emotional condition, does this person have difficulty doing errands alone such as visiting a doctor's office or shopping? Answer Date of Assessment Author No 05/10/2023 9:59 AM Leigh Ann Walsh MA documented as of this encounter Mental Status * Because of a physical, mental or emotional condition, does this person have serious difficulty concentrating, remembering or making decisions? Answer Entry Date Author No 05/10/2023 9:59 AM Leigh Ann Walsh MA documented in this encounter Progress Notes * Alexandria Henderson RN - 02/07/2025 9:19 AM EDT SEP Order Completion Outcome Tracking Contact Attempt:: Final Mammogram Outcome:: Left Voicemail to Return Call at [phone] DEXA Outcome:: Left Voicemail to Return Call at [phone] * Brea Miller RN - 01/24/2025 1:16 PM EDT SEP Order Completion Outcome Tracking Contact Attempt:: First Mammogram Outcome:: Left Voicemail to Return Call at [phone], [employer] Message DEXA Outcome:: Left Voicemail to Return Call at [phone], [employer] Message documented in this encounter Plan of Treatment Not on file documented as of this encounter Goals Goal Patient Goal Type Associated Problems Recent Progress Patient-Stated? Author Blood Pressure < 140/90 Blood Pressure 132/80(2024 10:12 AM EST) No Pastor Hensley MD Maintain a healthy diet, exercise regularly and maintain an ideal body weight General No Diane Riojas RMA documented as of this encounter Visit Diagnoses Not on filedocumented in this encounter Additional Health Concerns Assessment Noted Time A fall risk assessment has been complete d for the patient 07/04/2024 10:00 AM EST documented as of this encounter Care Teams Railroad Track Inspector Relationship Specialty Start Date End Date Pastor Hensley MD [address] [place] [id number] PCP - General Internal Medicine 11/04/20 documented as of this encounter
[2025-02-22 11:53] VITALS: BP 184/91; PULSE 89; RESP 16; TEMP 36.6; O2SAT 97; BMI 28.3
[2025-02-22] MEDS: INCLISIRAN SODIUM 284 MG/1.5 ML SYRINGE SUBCUT (12:00)
[2025-02-22 12:10] VITALS: BP 179/89; PULSE 85; RESP 16; TEMP 36.4; O2SAT 98
== END 2025-02-22 12:12 | disposition home or self-care (01) ==
LOC: INF 11:46
PROVIDERS: Visit Provider Internal Medicine
DX: Z01.89 Encounter for other specified special examinations (principal)
CPT/HCPCS: 96372; J1306